=== PATIENT | male | born 1955 | race Caucasian/White ===

== ENCOUNTER 2021-07-24 11:47 | Day surgery (SDC) | payer OTHER ==
[~2021-07-24] VITALS: Ht 180.3 cm; Wt 113.0 kg
[~2021-07-24 11:47] MED LIST: ALEVE220 MG PO; ALLO300 PO; AMLO10 PO; ASPI325; Aspirin EC81 MG; HYDACE5 PO; HYDCHL12.5 PO; TRAM50 PO
[2021-07-24] MEDS ORDERED: FENO54 PO (12:15)
== END 2021-07-24 13:57 | disposition home or self-care (01) ==
LOC: ORSCSDS 11:47
PROVIDERS: Internal Medicine Gastroenterology
PROC: 0DJD8ZZ Inspection of Lower Intestinal Tract, Via Natural or Artificial Opening Endoscopic (ICD-10-PCS; principal; 2021-07-24 13:00)
DX: Z12.11 Encounter for screening for malignant neoplasm of colon (principal); Z86.010 Personal history of colon polyps; G47.30 Sleep apnea, unspecified; E66.9 Obesity, unspecified; Z68.35 Body mass index [BMI] 35.0-35.9, adult; I10 Essential (primary) hypertension; G47.33 Obstructive sleep apnea (adult) (pediatric); Z79.899 Other long term (current) drug therapy
CPT/HCPCS: J2704; J7120